=== PATIENT | male | born 1970 | race Caucasian/White ===

== ENCOUNTER 2024-03-08 11:06 | Emergency (ER) | payer BC, SELFPAY ==
--- NOTE | 2024-03-08 11:20 | ED.GENADULT ---
HPI - General Adult General Chief complaint: Upper Respiratory Infection Stated complaint: Cold symptoms/ lt eye stye Time Seen by Provider: 03/08/24 11:20 Source: patient Mode of arrival: ambulatory Limitations: no limitations History of Present Illness HPI narrative: 53-year-old male patient presents to the [facility] with complaints of cold symptoms on and off for the past week. Patient states last weekend he was working out in the yd this past Saturday when he was off work he has been working out the ER. Patient states he has had runny nose, congestion and a mild cough. Patient states he feels like his sinuses are clogged. Patient states he has been using a Neti pot, [id number] DayQuil and NyQuil for symptoms. Denies any [id number] antihistamines. Patient fevers, body aches or chills. Related Data Home Medications Medication Instructions Recorded Confirmed atorvastatin 10 mg tablet 10 mg PO DAILY 03/08/24 03/08/24 lisinopril 10 mg tablet 10 mg PO DAILY 03/08/24 03/08/24 metoprolol succinate 25 mg 25 mg PO DAILY 03/08/24 03/08/24 tablet,extended release 24 hr Allergies Allergy/AdvReac Type Severity Reaction Status Date / Time Penicillins AdvReac Mild Rash Verified 03/08/24 11:29 Review of Systems Review of Systems: CONSTITUTIONAL: Denies fever, chills, or sweats. EYES: Denies visual changes, redness, or discharge. ENT: Positive rhinorrhea, congestion, denies sore throat, or otalgia. CARDIOVASCULAR: Denies chest pain, palpitations, or edema. RESPIRATORY: positive mild cough , denies dyspnea. GASTROINTESTINAL: Denies abdominal pain, nausea, vomiting, or diarrhea. GENITOURINARY: Denies dysuria or hematuria. SKIN: Denies rash or itching. MUSCULOSKELETAL: Denies back pain, joint pain, or myalgia. NEUROLOGIC: Denies headache, numbness, or weakness. PSYCHIATRIC: Denies anxiety or depression. [facility] Family History Family History Grandparent Cerebrovascular accident Mother Family history of arthritis Father Family history of coronary artery disease Comments At the time of my signature I agree with nursing past medical history, surgical, social, and family history. There is no relevant family history pertinent to the presenting complaint. Exam Narrative: GENERAL: Well-appearing, well-nourished, and in no acute distress. HEAD: Normocephalic, atraumatic. EYES: PERRLA and EOMI. patient has internal hordeolum noted to the inner left upper lid on inversion of lead. Slight erythema noted to the lid no warmth. ENT: Nares with erythema edema noted bilaterally, clear rhinorrhea , denies epistaxis. Mucous membranes moist. Posterior pharynx with slight postnasal drip no tonsillar enlargement, no exudates or lesions present. Of pop slight fluid noted behind eardrums to bilateral ears. NECK: Supple. No lymphadenopathy CHEST: Clear to auscultation. No respiratory distress. HEART: Regular rate and rhythm. No murmur heard. Normal peripheral pulses. ABDOMEN: Soft, nontender, nondistended, normal active bowel sounds. EXTREMITIES: Normal range of motion. No edema. SKIN: Warm, dry, no rash. NEURO: No focal deficits. Alert and oriented x3. Course Course Level of Care: Express Care Visit Vital Signs Vital signs: Vital Signs Temperature 36.2 C L 03/08/24 11:22 Pulse Rate 82 03/08/24 11:22 Respiratory Rate 18 03/08/24 11:22 Blood Pressure 144/87 H 03/08/24 11:22 Pulse Oximetry 98 03/08/24 11:22 Oxygen Delivery Room Air 03/08/24 11:22 Temperature 36.2 C L 03/08/24 11:22 Pulse Rate 82 03/08/24 11:22 Respiratory Rate 18 03/08/24 11:22 Blood Pressure 144/87 H 03/08/24 11:22 Pulse Oximetry 98 03/08/24 11:22 Oxygen Delivery Room Air 03/08/24 11:22 vital signs reviewed. Medical Decision Making MDM Narrative Medical decision making narrative: Plan care patient is discharged home and encouraged
[2024-03-08 11:22] VITALS: BP 144/87; PULSE 82; RESP 18; TEMP 36.2; O2SAT 98
== END 2024-03-08 11:40 | disposition home or self-care (01) ==
PROVIDERS: Emergency Provider Nurse Practitioner Family
DX: J30.9 Allergic rhinitis, unspecified (principal); R09.82 Postnasal drip; H00.024 Hordeolum internum left upper eyelid; E78.00 Pure hypercholesterolemia, unspecified; I10 Essential (primary) hypertension; I25.2 Old myocardial infarction; Z86.16 Personal history of COVID-19; K21.9 Gastro-esophageal reflux disease without esophagitis
CPT/HCPCS: 99211; G0463

== ENCOUNTER 2024-06-29 16:06 | Emergency (ER) | payer BC, SELFPAY ==
[2024-06-29 16:18] VITALS: BP 144/87; PULSE 78; RESP 18; TEMP 35.7; O2SAT 98
[2024-06-29] MEDS: TETANUS,DIPHTHERIA,AC PERTUSSIS ADULT (0.5 ML) BOOSTRIX IM (16:44)
--- NOTE | 2024-06-29 16:55 | ED_ITS ---
HPI - Extremity Injury (Upper) General Chief Complaint: Extremity Injury, Upper Stated Complaint: LT Hand Finger Cut Time Seen by Provider: 06/29/24 16:55 Source: patient, RN notes reviewed and old records reviewed Mode of arrival: ambulatory Limitations: no limitations History of Present Illness HPI narrative: patient presents with complaints of laceration to left hand between the thumb and the index finger. Accident happened just prior to arrival. Bleeding is controlled. Patient is not up-to-date on tetanus, this will be updated today Related Data Home Medications Medication Instructions Recorded Confirmed atorvastatin 10 mg tablet 10 mg PO DAILY 03/08/24 06/29/24 lisinopril 10 mg tablet 10 mg PO DAILY 03/08/24 06/29/24 metoprolol succinate 25 mg 25 mg PO DAILY 03/08/24 06/29/24 tablet,extended release 24 hr Allergies Allergy/AdvReac Type Severity Reaction Status Date / Time Penicillins AdvReac Mild Rash Verified 06/29/24 16:28 scallops AdvReac Gastrointestinal Verified 06/29/24 16:28 Upset Review of Systems Review of Systems: All systems reviewed & are unremarkable except as noted in HPI and below Constitutional: Constitutional: Reports no additional constitutional complaints ENT: Reports system reviewed and no additional complaints, except as documented Cardiovascular: Cardiovascular: Reports no additional cardiovascular complaints Respiratory: Respiratory: Reports no additional respiratory complaints Gastrointestinal: Gastrointestinal: Reports no additional gastrointestinal complaints Integumentary/Breasts: Skin/Breast: Reports system reviewed and no additional complaints, except as docu, Reports as per HPI and Reports wounds PMFSH Family History Family History Grandparent Cerebrovascular accident Mother Family history of arthritis Father Family history of coronary artery disease Comments At the time of my signature, I reviewed and agree with the nursing past medical, surgical, social, and family history. There is no relevant family history pertinent to the patient complaint. Exam Const: General: cooperative, no acute distress, alert and awake Orientation/consciousness: oriented to person, oriented to place and oriented to time HENMT: Head: normal to inspection Resp: Effort & Inspection: normal respiratory effort and able to speak in complete sentences Auscultation: clear to auscultation bilaterally, no crackles, no rales, no rhonchi and no wheezes Cardio: Palpation: normal PMI Rate: regular rate Rhythm: regular rhythm Heart sounds: S1 normal heart sound present and S2 normal heart sound present Skin: Full body images: 1. 2 cm linear wound Neuro: General: oriented to person, oriented to place and oriented to time Cranial nerves: Yes CN's II-XII intact bilaterally Extrem: Left upper extremity: full ROM, normal capillary refill and hand neuromotor exam normal, neurosensory exam normal and normal ROM of fingers Psych: Appearance: grossly normal Thought process: Normal thought process present Insight: Good insight present (Psych) Judgement: Good judgement present (Psych) Course Course Level of Care: Express Care Visit Vital Signs Vital signs: Vital Signs Temperature 96.2 F L 06/29/24 16:18 Pulse Rate 78 06/29/24 16:18 Respiratory Rate 18 06/29/24 16:18 Blood Pressure 144/87 H 06/29/24 16:18 Pulse Oximetry 98 06/29/24 16:18 Oxygen Delivery Room Air 06/29/24 16:18 Temperature 96.2 F L 06/29/24 16:18 Pulse Rate 78 06/29/24 16:18 Respiratory Rate 18 06/29/24 16:18 Blood Pressure 144/87 H 06/29/24 16:18 Pulse Oximetry 98 06/29/24 16:18 Oxygen Delivery Room Air 06/29/24 16:18 Reviewed Procedures Laceration Laceration 1: Date: 06/29/24 Time: 17:24 Site: hand Side (If applicable): left Size (cm): 2 Description: linear Depth: simple, single layer Local Anesthetic: lidocaine 1% Amount of anesthesia used (mL): 8 Pre-repair: irrigated ====== Skin Level ====== Skin layer closed with: nylon Size (cm): 4-0 Technique: simple, interrupted ====== Subcutaneous Layer ====== Size: 4-0 Number of sutures: 2 Technique: simple, interrupted ====== Muscle Layer ====== ====== Tendon Layer ====== MDM - Extremity Injury (Upper) MDM Narrative Medical decision making narrative: laceration to the left hand, CMS intact. Easily repaired with 2 sutures. Tetanus updated. Follow-up with primary care provider, emergency department for new or worse symptoms. Discharge instructions reviewed with patient, as well as provided in writing per nursing staff. The instructions also include specific and strict return/GO TO THE ER as well as f/u information. All questions have been answered, and the patient deny any further questions wi th discharge and discharge plan. Some parts of this dictation were generated by voice recognition software and may contain typographical and/or grammatical inaccuracies. Differential Diagnosis Differential diagnosis: Likely other (Laceration, avulsion) Medical Records Attestation: I reviewed the patient's medical records. Discharge Plan Discharge Clinical Impression: Laceration Patient Disposition: Home, Self-Care Condition: Stable Instructions: Antibiotic Form, Care For Your Stitches (ED) Additional Instructions: you have 2 stitches, they must be removed in 7-10 days Patient Language: Chinese Prescriptions: No Action atorvastatin 10 mg tablet 10 mg PO DAILY lisinopril 10 mg tablet 10 mg PO DAILY metoprolol succinate 25 mg tablet extended release 24 hr 25 mg PO DAILY Follow-up/Referrals: Brandon,Nikkie Zuniga [Other] - 1 Week Time of Disposition: 17:52
== END 2024-06-29 17:54 | disposition home or self-care (01) ==
PROVIDERS: Emergency Provider Nurse Practitioner Family
DX: S61.412A Laceration without foreign body of left hand, initial encounter (principal); X58.XXXA Exposure to other specified factors, initial encounter; Z23 Encounter for immunization; E78.00 Pure hypercholesterolemia, unspecified; I10 Essential (primary) hypertension; I25.2 Old myocardial infarction; K21.9 Gastro-esophageal reflux disease without esophagitis; Z86.16 Personal history of COVID-19
CPT/HCPCS: 12001; 90471; 90715; 99212; G0463

== ENCOUNTER 2025-07-05 18:50 | Emergency (ER) | payer BC, SELFPAY ==
--- NOTE | ~2025-07-05 | XR_ITS ---
XR toe 2nd RT min 2V INDICATION: pain COMPARISON: None FINDINGS: Frontal, lateral and oblique views of the second toe demonstrate no acute fracture or dislocation. IMPRESSION: No acute fracture or dislocation. Reviewed, dictated and finalized at location S.
--- NOTE | ~2025-07-05 | XR_ITS ---
XR foot LT min 3V INDICATION: foot pain/injury, medial and top of foot . COMPARISON: None. FINDINGS: Frontal, lateral and oblique views of the left foot demonstrate no acute fracture or dislocation. IMPRESSION: No acute fracture or dislocation. Reviewed, dictated and finalized at location S.
--- NOTE | 2025-07-05 18:57 | ED.LOWEXIN ---
HPI - Extremity Injury (Lower) General Chief Complaint: Extremity Injury, Lower Stated Complaint: toe Time Seen by Provider: 07/05/25 19:05 Source: patient Mode of arrival: ambulatory Limitations: no limitations History of Present Illness HPI Narrative: Yunier is a 54-year-old male patient presenting to the clinic today with complaints of right 2nd toe pain and left foot pain. He reports he injured his left foot when running a couple months ago and is having pain and numbness to the top of his foot into the medial ankle. Numbness has been improving. He also dropped a weight on his right 2nd toe this morning and is concerned that it may be broken. Has taken ibuprofen for his symptoms. Related Data Home Medications ?Medication ?Instructions ?Recorded ?Confirmed ?Last Taken ?Type atorvastatin 10 mg tablet 10 mg PO DAILY 03/08/24 06/29/24 Unknown History lisinopril 10 mg tablet 10 mg PO DAILY 03/08/24 06/29/24 Unknown History metoprolol succinate 25 mg 25 mg PO DAILY 03/08/24 06/29/24 Unknown History tablet,extended release 24 hr Allergies Allergy/AdvReac Type Severity Reaction Status Date / Time Penicillins Allergy Mild Rash Verified 07/05/25 19:13 scallops AdvReac Gastrointestinal Verified 07/05/25 19:13 Upset Review of Systems Review of Systems: Pertinent positives per HPI. Patient denies any fever, chills, rash, headache, visual changes, dizziness, cough, runny nose, sore throat, shortness of breath, chest pain, palpitations, nausea, vomiting, diarrhea, constipation, abdominal pain, or any urinary issues. [facility] Family History Family History Grandparent Cerebrovascular accident Mother Family history of arthritis Father Family history of coronary artery disease Comments At the time of my signature, I reviewed and agree with the nursing past medical, surgical, social, and family history. There is no relevant family history pertinent to the patient complaint. Exam Narrative: General: Well-developed, morbidly obese, in no apparent distress Head: Normocephalic, atraumatic. Cardio: Regular rate and rhythm, s1 and s2 normal, no murmur appreciated. Resp: Clear to auscultation bilaterally, no rhonchi, rales, wheezing or rubs. Musculoskeletal: No deformity, bruising noted to the proximal right 2nd toe, tender to palpation over the right 2nd toe, numbness and mild pain to palpation over the left ankle and dorsal foot, grossly normal range of motion, muscle strength strong and equal, peripheral pulse strong, no edema, no cyanosis, normal gait and station Course Course Emergency Course: Portions of this record may have been created with voice recognition software. Level of Care: Express Care Visit Vital Signs Vital signs: Vital Signs Temperature 35.9 C L 07/05/25 19:13 Pulse Rate 62 07/05/25 19:13 Respiratory Rate 16 07/05/25 19:13 Blood Pressure 117/75 07/05/25 19:13 Pulse Oximetry 99 07/05/25 19:13 Temperature 35.9 C L 07/05/25 19:13 Pulse Rate 62 07/05/25 19:13 Respiratory Rate 16 07/05/25 19:13 Blood Pressure 117/75 07/05/25 19:13 Pulse Oximetry 99 07/05/25 19:13 Vital signs reviewed MDM - Extremity Injury (Lower) MDM Narrative Medical decision making narrative: At the time of visit patient is resting comfortably on the exam table. Patient appears to be nontoxic. Complaints of right 2nd toe pain and left foot pain. He reports he injured his left foot when running a couple months ago and is having pain and numbness to the top of his foot into the medial ankle. Numbness has been improving. He also dropped a weight on his right 2nd toe this morning and is concerned that it may be broken. Has taken ibuprofen for his symptoms.No deformity, bruising noted to the proximal right 2nd toe, tender to palpation over the right 2nd toe, numbness and mild pain to palpation over the left ankle and dorsal foot, grossly normal range of motion. X-ray of the right 2nd toe and left foot were ordered per patient request. Diagnostics: X-rays of right 2nd toe and left foot were negative for any sign of fracture or malalignment. Plan: I suspect patient has left foot paresthesia due to old injury as well as right 2nd toe contusion. Will send in prescription for a Medrol Dosepak to see if this helps with paresthesia. Supportive measures were discussed with the patient and they voiced understanding discharge instructions and agrees to treatment plan. Return precautions reviewed Differential Diagnosis Differential diagnosis: Likely fracture of toe and other (Foot fracture, paresthesia, tendinitis, plantar fasciitis) Imaging Data Radiologist's impression: ITS Impressions Foot X-Ray 07/05/25 19:14 IMPRESSION: No acute fracture or dislocation. Toe X-Ray 07/05/25 19:15 IMPRESSION: No acute fracture or dislocation. Discharge Plan Discharge Clinical Impression: Paresthesia of left foot Contusion of toe Qualifiers: Encounter type: initial encounter Toe: lesser toe Damage to nail status: without damage Laterality: right Qualified Code(s): S90.121A - Contusion of right lesser toe(s) without damage to nail, initial encounter Patient Disposition: Home Condition: Stable Instructions: Antibiotic Form, Contusion in Adults (ED), Paresthesia (ED) Additional Instructions: X-ray of the right toe and left foot are negative for any sign of fracture or malalignment. Rest, ice, elevate, and wear brian wrap as directed Tylenol/motrin for pain as discussed. Take Medrol Dosepak as prescribed Gradually bear weight No running or sports until healed. Follow up with your PCP if symptoms persist more than 1 week. Patient Language: Colombian Prescriptions: New methylprednisolone [Medrol (Dharmesh)] 4 mg tablets,dose pack See Rx Instructions PO .COMPLEX Qty: 21 0RF Rx Instructions: orally per package directions No Action atorvastatin 10 mg tablet 10 mg PO DAILY lisinopril 10 mg tablet 10 mg PO DAILY metoprolol succinate 25 mg tablet extended release 24 hr 25 mg PO DAILY Follow-up/Referrals: UNKNOWN,DOCTOR [Primary Care Provider] Time of Disposition: 19:19 Quality NIHSS Nursing Documentation ED NIHSS nursing documentation: reviewed/agree
[2025-07-05 19:13] VITALS: BP 117/75; PULSE 62; RESP 16; TEMP 35.9; O2SAT 99
--- OUTSIDE RECORDS SUMMARY | 2025-07-05 19:25 | XMS_ITS | Clinical Summary ---
Author Organization [facility] Address [address] [place] [address] Care Team Providers Care Law Firm Consultant Name Role Phone Unavailable Primary Care Provider Unavailabl e Source Comments [facility],non-owned Affiliates and Associated Physician Practices is amultiple site organization consisting of ambulatory clinics and hospital sitesin [place], [place], [place] and [place]. This disclosure is being madepursuant to the Care Everywhere program and may not contain all information available regarding this patient. Last updated 18.[facility] Allergies No known active allergies Medications * Be aware that medications may not be up to date on this document. Alwaysverify current medications with the patient. naproxen (NAPROSYN) 500 MG tablet Take 1 Tab by mouth 2 times daily as needed for Pain. 6 Tab 0 05/10/2014 Active diazepam (VALIUM) 5 MG tablet Take 1 Tab by mouth 3 times daily as needed for Spasms. 6 Tab 0 05/10/2014 Active hydrocodone-acet aminophen (NORCO) 5-325 MG tablet Take 1-2 Tabs by mouth every 6 hours as needed for Pain. 6 Tab 0 05/10/2014 Active Social History Tobacco Use Types Packs/Day Years Used Date Smoking Tobacco: Never Alcohol Use Standard Drinks/Week Comments No 0 (1 standard drink = 0.6 oz pur e alcohol) Sex and Gender Information Value Date Recorded Sex Assigned at Not on file Legal Sex Male 5:50 PM CDT Gender Identity Not on file Sexual Orientation Not on file Last Filed Vital Signs Vital Sign Reading Time Taken Comments Blood Pressure 144/85 05/10/2014 8:25 PM CDT Pulse 65 05/10/2014 8:25 PM CDT Temperature 36.8 C (98.2 F) 05/10/2014 8:25 PM CDT Respiratory Rate 18 05/10/2014 8:25 PM CDT Oxygen Saturation 99% 05/10/2014 8:25 PM CDT Inhaled Oxygen Concentration - - Weight 182.8 kg (403 lb) 05/10/2014 6:34 PM CDT Height 190.5 cm (6' 3) 05/10/2014 6:34 PM CDT Body Mass Index 50.37 05/10/2014 6:34 PM CDT Plan of Treatment Health Maintenance Due Date Last Done Comments COLOGUARD (AGES 45-75) - COL ON CA SCREENING 1968 COLON MONITORING 1968 COLONOSCOPY - COLON CA SCREENING 1968 CT COLONOGRAPHY - COLON CA SCREENING 1968 Colorectal Cancer Screening 1968 FIT - COLON CA SCREENING 1968 FLEX SIG - COLON CA SCREENING 1968 LIPID TESTING 1968 HIV SCREENING 11/15/1983 HEPATITIS C SCREENING 11/10/1986 DTAP/TDAP/TD VACCINES (1 - Tdap) 11/15/1987 HEPATITIS B VACCINE (1 of 3 - 19+ 3-dose series) 11/15/1987 PNEUMOCOCCAL VACCINE 50+ (1 of 1 - PCV) 2018 ZOSTER VACCINE (1 of 2) 2018 DEPRESSION SCREENING 09/16/2024 COVID-19 VACCINE (1 - 2023-2 5 season) 2025 INFLUENZA VACCINE (#1) 2025 HIB VACCINE Aged Out No longer eligi ble based on patient's age to complete this topic HPV VACCINE Aged Out No longer eligi ble based on patient's age to complete this topic MENINGOCOCCAL (Group B) VACC INE SHARED DECISION-MAKING Aged Out No longer eligibl e based on patient's age to complete this topic MENINGOCOCCAL GROUPS A/C/Y/W VACCINE Aged Out No longer eligible b ased on patient's age to complete this topic Insurance PAYOR GENERIC
--- OUTSIDE RECORDS SUMMARY | 2025-07-05 19:25 | XMS_ITS | Clinical Summary ---
Author Organization [facility] Address [address] [place] [address] Care Team Providers Care Assistant Associate Professor Name Role Phone Nikkie Taylor MD Primary Care Provider + Allergies Active Allergy Reactions Criticality Noted Date Comments Penicillins Unknown Childhood allergy Scallops Nausea & Vomiting Low 08/11/2019 Medications tadalafiL (Cialis) 20 mg tablet Take 1 tablet (20 mg total) by mouth daily as needed for erectile dysfunction 60 tablet 3 07/12/20 23 Active atorvastatin (LIPITOR) 10 mg tabletIndications:Mi xed hyperlipidemia,Coron jennifer arteriosclerosis in [place] artery TAKE 1 TABLET(10 MG) BY MOUTH DAILY 90 tablet 3 10/09/19 25 Active metoprolol XL (TOPROL-XL) 25 mg extended release tabletIndications:Be nign essential hypertension,Coronar y arteriosclerosis in [place] artery TAKE 1 TABLET(25 MG) BY MOUTH DAILY 90 tablet 3 10/13/19 25 Active lisinopriL (PRINIVIL,ZESTRIL) 40 mg tabletIndications:Be nign essential hypertension Take 1 tablet (40 mg total) by mouth daily 90 tablet 1 10/16/19 25 Active multivitamin-mineral s-lutein (Multivitamin 50 Plus) tabletIndications:Hurley pplement Take 1 tablet by mouth every morning Active psyllium, aspartame, SF (METAMUCIL SF) 3.4 gram packetIndications:co nstipation Take 1 packet by mouth as needed (Constipation) Active Active Problems Problem Noted Date Diagnosed Date Odynophagia 10/16/2024 Prediabetes 07/07/2024 Assessment & Plan (10/16/2024 2:54 PM PIPELINE GANG SUPERVISOR): A1c 5.8% improved from 6.2% . Encouraged continued lifestyle modifications, will plan to follow up in 6 months. Assessment & Plan (07/10/2024 8:10 PM CDT): REcent A1c elevated, encouraged lifestyle modifications, will plan to follow up in 3 months. Erectile dysfunction 07/05/2023 Assessment & Plan (07/05/2023 4:26 PM CDT): Noted new and decrease in libido. Will check testosterone level, and discussed secondary causes, including poorly controlled blood pressure. Discussed possible medication, patient prefers to see urology, will place referral. COVID 03/27/2022 Assessment & Plan (03/27/2022 2:44 PM CDT): Day 1 of illness, discussed molnupiravir as option, as would not do paxlovid given budesonide therapy. He defers treatment for now, will continue with supportive therapy at home, and will return in 2-3 days should he decide to move forward with antiviral therapy. History of small intestine ulcer 09/20/2021 Overview (09/20/2021): Added automatically from request for surgery [id number] Insect bite of left lower leg 08/01/2021 Assessment & Plan (08/01/2021 1:28 PM PIPELINE GANG SUPERVISOR): No visible bite frank noted Will start with Mupirocin. Sending Bactrim as well (SER ) to prevent cellulitis Advised pt to demarcate the area Can use cool compresses, keep the area clean dry, antihistamines + calamine lotion for itching Also instructed to look out for shingles ER warnings given Left leg pain 08/01/2021 Assessment & Plan (08/01/2021 1:23 PM PIPELINE GANG SUPERVISOR): Given his habitus and onset of pain - while it could be related to insect bite Will get D dimer to r/o blood clot Pt amenable to further testing, should d dimer be elevated Warnings given Terminal ileitis, without complications 06/15/20 Overview (06/15/2021): Added automatically from request for surgery [id number] Assessment & Plan (07/05/2023 4:25 PM CDT): Follows with GI, has upcoming appointment scheduled. Most recent colonoscopy showed improvement - holding asa to see if further improvement. Will continue to monitor. Assessment & Plan (07/24/2022 8:29 AM PIPELINE GANG SUPERVISOR): Incidentally found ileitis. His repeat colonoscopy still showed an ulcer but looked improved. I think this is probably NSAID related as he still has some exposure. I told him to discontinue all NSAIDs and take APAP if needed. This still could be Crohn's but it has not progressed. I told him that incidentally found ileitis often does not progress and the fact that his improved is a good sign. I will see him back in 1 year. We can decide on timing of next scope at that time. Benign essential hypertension 10/06/2014 Overview (12/20/2016): Benign essential hypertension Assessment & Plan (05/13/2025 2:57 PM CDT): Missed several doses of lisinopril, has restarted Recommend home monitoring and report back with readings Assessment & Plan (10/16/2024 2:55 PM PIPELINE GANG SUPERVISOR): Hypertensive in office, does not routinely check blood pressure at home, but does have similar readings to in office measurements. Will plan to increase lisinopril to 40mg and see how he does. Assessment & Plan (07/10/2024 8:08 PM CDT): Hypertensive in office, does not routinely check blood pressure at home. Will plan to increase lisinopril to 20mg daily. WIll follow up in 3 months. Assessment & Plan (07/05/2023 4:22 PM CDT): Hypertensive in office, does not routinely check blood pressure at home. Reports stress on way into office. Will have patient keep blood pressure log for the next two weeks and send back results. Will determine at that time if antihypertensive is needed. Will plan to increase lisinopril to 20mg daily. Assessment & Plan (07/13/2021 3:54 PM CDT): Patient still slightly hypertensive, but improved. Does not check blood pressures at home. Will have patient keep blood pressure log for the next two weeks and send back results. Will determine at that time if antihypertensive is needed. Will plan to increase lisinopril to 20mg daily. Again discussed risks of untreated hypertension including but not limited to stroke, heart disease, kidney disease, eye disease, and sexual side effects. Discussed modifiable risk factors including diet, exercise, salt intake, and weight loss. Assessment & Plan (03/22/2021 10:13 AM CDT): Patient is hypertensive - has not been checking blood pressures at home. Will plan to restart medication. In the past had been on lisinopril-HCTZ combo, as well as Metoprolol on and off. Given history of CAD and NSTEMI will plan to start on lisinopril and will also start metoprolol. Will have him start checking blood pressures at home, and will see back in 3 months. Assessment & Plan (06/28/2020 2:57 PM CDT): Patient has not been taking medication for very long time. His blood pressure today is improved. Will have him start to check his blood pressure at home, and keep a log. If over the next few weeks blood pressures remain controlled, will hold on restarting medication. Morbid obesity 10/06/2014 Overview (12/20/2016): Morbid obesity Assessment & Plan (10/16/2024 2:55 PM PIPELINE GANG SUPERVISOR): Patient notes he continues to exercise, and has noted his clothing fits better. He feels he is improving, and monitors weight at home - has had about 8 pound weight loss on home scale over the past 3 months. He continues to work towards improvement in obesity through lifestyle. Assessment & Plan (07/10/2024 8:10 PM CDT): Patient notes he continues to exercise, and has noted his clothing fits better. He feels he is improving, and monitors weight at home. He continues to work towards improvement in obesity through lifestyle. WIll follow up in 3 months and consider medication at that time if needed. Assessment & Plan (07/05/2023 4:24 PM CDT): Patient has had weight gain per chart review - he notes he continues to exercise, and has noted his clothing fits better. He feels he is improving, and monitors weight at home, is not interested in making changes at this time. Assessment & Plan (06/28/2020 2:56 PM CDT): Discussed with patient current weight and steps to continue to lose weight. Has lost about 25 pounds over the past year. He would like to get to 350 pounds or even 300 pounds, so he may get his hernia fixed, and start competing in boxing. He is doing well with getting exercise. He tries to eat a healthy diet, but does know he eats too many sweets and sodas. Discussed diet strategies, and will have him return in 3 months to see how he is doing. Coronary arteriosclerosis in [place] artery 10/06 Overview (12/20/2016): Coronary arteriosclerosis in [place] artery Assessment & Plan (07/10/2024 8:08 PM CDT): Patient with history of CAD and NSTEMI. Will continue with medical management, ASA on hold due to recent history terminal ileitis. Will monitor. Assessment & Plan (07/05/2023 4:23 PM CDT): Patient with history of CAD and NSTEMI. Will continue with medical management, ASA on hold due to recent history terminal ileitis. Will monitor. Assessment & Plan (03/22/2021 10:14 AM CDT): Patient with history of CAD and NSTEMI. Had been on medical management in the past. Will plan to restart beta dianna, GENA-I, and statin therapy at this time. Did also recommend to continue with ASA 81mg daily. Will see back in 3 months and will check labs at that time, and titrate up medications as needed. History of AR (myocardial infarction) 10/06/2014 Overview (12/20/2016): Old myocardial infarction Lumbago 08/02/2014 Cervicalgia 05/13/2014 Knee pain 11/17/2013 Hyperlipidemia 03/10/2013 Assessment & Plan (07/10/2024 8:08 PM CDT): Stable well controlled on current regimen, will send in refills as needed Assessment & Plan (07/05/2023 4:21 PM CDT): Due for lab, will check, and adjust medication if needed. Assessment & Plan (07/13/2021 3:54 PM CDT): Due for lab, will check, and adjust medication if needed. Hernia of anterior abdominal wall 03/02/2013 Obstructive sleep apnea syndrome 03/02/2013 Overview (12/27/2017): Description: on CPAP (2015) Resolved Problems Problem Noted Date Diagnosed Date Resolved Date Laceration of head 12/26/2017 9 Skin lesion 04/17/2016 08/11/2019 Weight decreasing 03/02/2013 08/11/2019 Overview (12/27/2017): Description: intentional weight loss, 40 lbs over the last 8 months (february 2013) Encounters Date Type Department Care Team Description 05/13/2025 2:00 PM CDT Office Visit [address] [address] Maria Guadalupe aVughn, DNP Redness of eye, right (Primary Dx); Subconjunctival hemorrhage of right eye; Benign essential hypertension from Last 3 Months Immunizations Immunization Administration Dates Next Due Influenza, Quadrivalent, Spl it, Preservative Free, Intramuscular 07/05/2023,06/28/2020,08/11/2019,07/27 Influenza, Trivalent, IM (MDV) 06/07/2017 Influenza, Trivalent, Preser vative Free, Intramuscular 10/04/2012 Influenza, Trivalent, Recomb inant, Egg Free, Preservative Free, Antibiotic Free, IM (FLUBLOK) 07/10/2024 Influenza, Trivalent, Split, Preservative Free, Intradermal 06/24/2014 Tdap 07/05/2023,09/16/2012,07/26/2012 Surgical History Surgery Date Site/Laterality Comments CHOLECYSTECTOMY 09/16/2009 - 09/15/2010 [place] TONSILLECTOMY PRIMARY/SECONDARY <AGE 10 and adenoids COLONOSCOPY MENISCUS SURGERY Right Medical History Medical History Date Comments Sleep apnea Essential (primary) hypertension Motion sickness NSTEMI (non-ST elevated myoc ardial infarction) (HCC) 2009 per cardiac cath:likely due to transient thrombus small OM-1 branch occlusion-med. management Abdominal hernia Heart disease Dysphagia GERD (gastroesophageal reflux disease) Liver disease Obesity Family History Medical History Relation Name Comments Heart attack Father Dad + Etoh, + tob Heart failure Maternal Grandfather Alzheimer's disease Maternal Grandmother Rhonda Cancer Mother Mom morbid obesity Mother Mom Alzheimer's disease Paternal Grandfather Ismael Breast cancer Paternal Grandmother No Known Problems Sister Anesthesia problems Neg Hx Colon cancer Neg Hx Prostate cancer Neg Hx Relation Name Status Comments Father Dad Maternal Grandfather Maternal Grandmother Rhonda Mother Mom Paternal Grandfather Ismael Paternal Grandmother Sister Alive Social History Tobacco Use Types Packs/Day Years Used Date Smoking Tobacco: Never Passive Smoke Exposure: Past Smokeless Tobacco: Never Tobacco Cessation:Counseling Given: Not Answered Alcohol Use Standard Drinks/Week Comments No 0 (1 standard drink = 0.6 oz pur e alcohol) AUDIT-C Answer Date Recorded Q1: How often do you have a drink containing alcohol? Monthly or less 11/02/2024 Q2: How many drinks containi ng alcohol do you have on a typical day when you are drinking? Patient does not drink Q3: How often do you have si x or more drinks on one occasion? Never 11/02/2024 PHQ-2 Answer Date Recorded PHQ-2 Total Score (If total score is 3 or more points, staff should administer the PHQ-9) 0 07/05/2023 Personal Safety Answer Date Recorded Have you ever been in or are you currently in a harmful physical or emotional relationship or is someone making you feel afraid or unsafe? Denies 11/02/2024 Sex and Gender Information Value Date Recorded Sex Assigned at Not on file Legal Sex Male 1:36 AM PIPELINE GANG SUPERVISOR Gender Identity Not on file Sexual Orientation Not on file Obstetrics History Last Filed Vital Signs Vital Sign Reading Time Taken Comments Blood Pressure 128/84 05/13/2025 2:02 PM CDT Pulse 66 05/13/2025 2:02 PM CDT Temperature 37.1 C (98.7 F) 05/13/2025 2:02 PM CDT Respiratory Rate 33 11/02/2024 11:23 AM PIPELINE GANG SUPERVISOR Oxygen Saturation 98% 05/13/2025 2:02 PM CDT Inhaled Oxygen Concentration - - Weight 194 kg (427 lb 12.8 oz) 05/13/2025 2:02 P M CDT Height 190.5 cm (6' 3) 05/13/2025 2:02 PM CDT Body Mass Index 53.47 05/13/2025 2:02 PM CDT Plan of Treatment Scheduled Procedures Name Priority Associated Diagnoses Date/Ti me ESOPHAGOGASTRODUODENOSCOPY Open Access Odynophagia Health Maintenance Due Date Last Done Comments Hepatitis C Screening 1970 Hepatitis B Screening 1986 Depression Screening 07/05/2024 07/05/2023, 08/11/20 19 Covid-19 Vaccine ( season) 2025 07/05/2022, 09/10/2021, 01/01/2021, Additional history exists Influenza Vaccine (#1) 2025 , 07/05/2023, 07/05/2022, Additional history exists Regular Well Visit/Exam 18-64 07/10/2025 07/10/2024, 07/05/2023, 06/28/2020, Additional history exists Prostate Cancer Screening-PSA 07/06/2026 07/06/2024, 08/08/2019 Colon Cancer Screening-Colonoscopy 11/09/2031 11/09/2021, 11/01/2020 DTaP/Tdap/Td Vaccine (5 - Td or Tdap) 06/29/2034 06/29/2024, 07/05/2023, 09/16/2012, Additional history exists Colon Cancer Screening-CT Colonography Discontinued 11/09/2021, 11/01/2020 Colon Cancer Screening-DNA Stool Discontinued 11/09/2021, 11/01/2020 Colon Cancer Screening-FIT Discontinued 11/09/2021, Colon Cancer Screening-Sigmoidoscopy Discontinued 11/09/2021, 11/01/2020 Zoster Vaccine Discontinued 05/10/2022, 11/12/2021 Pneumococcal vaccine <65 Aged Out No longer eligible based on patient's age to complete this topic Procedures Procedure Name Priority Date/Time Associated Diagnosis Comments PSA SCREEN Routine 07/06/2024 10:21 AM CDT Prostate cancer screening COLONOSCOPY 11/09/2021 9:08 AM PIPELINE GANG SUPERVISOR from Last 3 Months or Most Recently Relevant to Health Maintenance Results * PSA screen (07/06/2024 10:21 AM CDT) PSA 0.29 < OR = 4.00 ng/mL [facility] Comment: The total PSA value from this assay system is standardized against the WHO standard. The test result will be approximately 20% lower when compared to the equimolar-standardized total PSA (Antonella Bighorn). Comparison of serial PSA results should be interpreted with this fact in mind. This test was performed using the Siemens chemiluminescent method. Values obtained from different assay methods cannot be used interchangeably. PSA levels, regardless of value, should not be interpreted as absolute evidence of the presence or absence of disease. Blood 07/06/2024 10:2 1 AM CDT 07/06/2024 10:22 AM CDT Narrative [facility] - 07/07/2024 10:00 AM CDT FASTING:YES FASTING: YES Nikkie Taylor MD LAB BLOOD ORDERABLES Fin al Result [place] [id number] [id number] * COLONOSCOPY (11/09/2021 9:08 AM PIPELINE GANG SUPERVISOR) Anatomical Region Laterality Modality Other Narrative Procedure Note Uzair Lambert MD - 11/09/2021 9:08 AM CST [facility] Patient Name: Yunier Yael Procedure Date: 11/09/2021 9:08 AM Date of : 1970 Admit Type: Outpatient Age: 50 Gender: Male Attending MD: Uzair Lambert M.D. Room: [facility] ENDOSCOPY ROOM 8 Note Status: Finalized Procedure: Colonoscopy Indications: Last colonoscopy: October 2020, Follow upileitis Referring MD: Tarik Synder M.D., Nikkie Taylor M.D. Providers: Uzair Lambert M.D. Medicines: Monitored Anesthesia Care Complications: No immediate complications. Estimated Blood Loss: Estimated blood loss was minimal. Procedure: Pre-Anesthesia Assessment: - Prior to the procedure, a History and Physicalwas performed, and patient medications, allergies and sensitivities were reviewed. The patient'stolerance of previous anesthesia was reviewed. - The risks and benefits of the procedure and the sedation options and risks were discussed with the patient. All questions were answered and informed consent was obtained. - Immediately prior to administration ofmedications, the patient was re-assessed for adequacy to receive sedatives. The benefits, risks and alternatives of theprocedure and sedation were discussed and informed consentwas obtained. All questions were answered. Please referto the signed informed consent document in the medical record. The scope was passed under direct vision.The CF HQ [id number] endoscope was introducedthrough the anus and advanced to the terminal ileum. The colonoscopy was performed without difficulty. The patient tolerated the procedure well. The qualityof the bowel preparation was evaluated using the BBPS ([place] Bowel Preparation Scale) with scores of:Right Colon = 3, Transverse Colon = 3 and Left Colon = 3 (entire mucosa seen well with no residual staining, small fragments of stool or opaque liquid). Thetotal BBPS score equals 9. The bowel preparation used was GoLYTELY via split dose instruction. The quality of the bowel preparation was good. Findings: The terminal ileum contained a single (solitary) six mm ulcer, just proximal to the ileocecal valve. No bleeding was present. No stigmataof recent bleeding were seen. Biopsies were taken with a cold forcepsfor histology. The remainder of the exam in the terminal ileum was normal. Normal mucosa was found in the entire colon. Biopsies were taken witha cold forceps for histology. A few small-mouthed diverticula were found in the sigmoid colon. External and internal hemorrhoids were found. The hemorrhoids were medium-sized. Impression: - A single (solitary) ulcer in the terminal ileum. This appears improved from last year's exam, where multiple ulcers were seen. Biopsied. - Normal mucosa in the entire examined colon.Biopsied. - Diverticulosis in the sigmoid colon. - External and internal hemorrhoids. Recommendation: - Await pathology results. - [facility] - Contact Information: During normal business hours - Please call [facility] Coordinator: [phone] After hours, evening, nights, weekends and holidays- Please call the hospital factory machine computer operator at and ask for the GI fellow lead generation marketing manager. Attending Participation: I personally performed the entire procedure. Electronically signed by Uzair Lambert MD Uzair Lambert M.D. 11/09/2021 9:43:06 AM . Number of Addenda: 0 Note Initiated On: 11/09/2021 9:08 AM Recognized by the [place] [employer] for promoting quality in endoscopy Uzair Lambert MD ENDOSCOPY PROCEDURES Final Result from Last 3 Months or Most Recently Relevant to Health Maintenance Insurance [employer] ACCESS CHOICE [employer] ACCESS CHOICE ANTHEM ACCESS CHOICE BLUE ACC CHOICE OOS ANTHEM ACCESS CHOICE Advance Directives For more information, please contact: [phone] * Full Code (Latest Code Status on File) Date Activated Date Inactivated Comments 11/02/2024 9:03 AM 11/02/2024 3:37 PM * Full Code Date Activated Date Inactivated Comments 11/09/2021 8:23 AM 11/09/2021 2:22 PM * Full Code Date Activated Date Inactivated Comments 11/01/2020 12:21 PM 11/01/2020 7:07 PM Care Teams Assistant Associate Professor Relationship Specialty Start Date End Date Nikkie Taylor MD PCP - General Internal Medicine 02/23/21
--- OUTSIDE RECORDS SUMMARY | 2025-07-05 19:25 | XMS_ITS | Encounter Summary ---
Author Organization [facility] Healthcare Address [address] [place] [address] Care Team Providers Care Work Checker Name Role Phone Cain Kellogg MD Primary Care Provider Nikkie Taylor MD Primary Care Provider + Encounter Details Date Type Department Care Team (Late st Contact Info) Description 11/18/2020 Telephone [facility] [id number] [place] [address] Ashley Mckenna, RT Social History Tobacco Use Types Packs/Day Years Used Date Smoking Tobacco: Never Smokeless Tobacco: Never Alcohol Use Standard Drinks/Week Comments No 0 (1 standard drink = 0.6 oz pur e alcohol) PHQ-2 Answer Date Recorded PHQ-2 Score 0 08/11/2019 Sex and Gender Information Value Date Recorded Sex Assigned at Not on file Legal Sex Male 1:36 AM SENIOR CONTROLS TECHNICIAN Gender Identity Not on file Sexual Orientation Not on file documented as of this encounter Plan of Treatment Scheduled Procedures Name Priority Associated Diagnoses Date/Ti me ESOPHAGOGASTRODUODENOSCOPY Open Access Odynophagia documented as of this encounter Visit Diagnoses Not on filedocumented in this encounter Care Teams Work Checker Relationship Specialty Start Date End Date Cain Kellogg MD PCP - General 05/01/11 02/22/21 Nikkie Taylor MD PCP - General Internal Medicine 02/23/21 documented as of this encounter
== END 2025-07-05 19:25 | disposition home or self-care (01) ==
PROVIDERS: Emergency Provider Nurse Practitioner Family
DX: S90.121A Contusion of right lesser toe(s) without damage to nail, initial encounter (principal); R20.2 Paresthesia of skin; W22.8XXA Striking against or struck by other objects, initial encounter
CPT/HCPCS: 73630; 73660; 99213; G0463